=== PATIENT | male | born 2000 | race Caucasian/White ===

== ENCOUNTER 2021-05-16 13:45 | Outpatient (RCR) | payer OTHER | END 2021-05-30 | disposition home or self-care (01) | LOC: PT.GENESIS | DX: M25.519 Pain in unspecified shoulder (principal) ==

== ENCOUNTER → 2022-07-14 | Outpatient (CLI) | payer OTHER | LOC: MHCPAIN 14:55 | DX: M25.512 Pain in left shoulder (principal); M25.511 Pain in right shoulder; M79.18 Myalgia, other site | CPT/HCPCS: G0463 ==